=== PATIENT | male | born 1965 | race Caucasian/White ===

== ENCOUNTER → 2020-05-06 | Outpatient (CLI) | payer OTHER | LOC: MRI 11:20 | PROVIDERS: ATTEND Ophthalmology | DX: D48.7 Neoplasm of uncertain behavior of other specified sites (principal) ==

== ENCOUNTER → 2020-06-16 | Outpatient (CLI) | payer OTHER | LOC: CAT 10:33 | PROVIDERS: ATTEND Ophthalmology | DX: R22.0 Localized swelling, mass and lump, head (principal) ==